=== PATIENT | female | born 1930 | race Caucasian/White ===

== ENCOUNTER → 2016-10-23 | Day surgery (SDC) | payer MEDICARE, OTHER ==
[~2016-10-23] MED LIST: ASPIR 8181 MG PO; ATIVAN1 MG PO; DEPAKOTE500 MG PO; DOCUSATE SODIU250 MG PO; DULCOLAX10 MG RC; ELESTAT5 ML OU; FERROUS GLUCON324 M1 PO; FLEET ENEMA133 ML RC; FLOMAX0.4 MG PO; ISOSORBIDE MONO30 MG PO; LEXAPRO10 MG PO; LIPITOR10 MG PO; NORCO 5-325 TA1 EACH PO; ROBAFEN100 MG/5 M PO; SENNA8.6 MG PO; SEROQUEL25 MG PO; SIMETHICONE80 MG PO; TYLENOL EXTRA500 MG PO; ZANTAC150 MG PO; ZOFRAN4 MG PO; ZYLOPRIM100 MG PO
== END | disposition home or self-care (01) ==
LOC: SDCH 10:18
DX: D12.0 Benign neoplasm of cecum (principal); D12.4 Benign neoplasm of descending colon; K52.9 Noninfective gastroenteritis and colitis, unspecified; K57.30 Diverticulosis of large intestine without perforation or abscess without bleeding; I10 Essential (primary) hypertension; Z86.69 Personal history of other diseases of the nervous system and sense organs; Z91.041 Radiographic dye allergy status; Z95.1 Presence of aortocoronary bypass graft; Z90.49 Acquired absence of other specified parts of digestive tract; Z87.19 Personal history of other diseases of the digestive system; Z90.710 Acquired absence of both cervix and uterus
CPT/HCPCS: J1610; J2704

== ENCOUNTER → 2016-10-30 | Day surgery (SDC) | payer MEDICARE, OTHER | END | disposition home or self-care (01) | LOC: SDC 10:57 → EDSTATUS 12:00 → SDC 13:30 | DX: C18.7 Malignant neoplasm of sigmoid colon (principal); K57.30 Diverticulosis of large intestine without perforation or abscess without bleeding; I10 Essential (primary) hypertension; I25.2 Old myocardial infarction; I25.10 Atherosclerotic heart disease of native coronary artery without angina pectoris; K21.9 Gastro-esophageal reflux disease without esophagitis; G89.29 Other chronic pain; M19.90 Unspecified osteoarthritis, unspecified site; Z86.73 Personal history of transient ischemic attack (TIA), and cerebral infarction without residual deficits; Z87.442 Personal history of urinary calculi; Z88.5 Allergy status to narcotic agent; Z91.041 Radiographic dye allergy status; Z90.49 Acquired absence of other specified parts of digestive tract; Z90.710 Acquired absence of both cervix and uterus; Z95.1 Presence of aortocoronary bypass graft | CPT/HCPCS: J1610; J2704 ==

== ENCOUNTER → 2016-11-07 | Day surgery (SDC) | payer MEDICARE, OTHER | END | disposition home or self-care (01) | LOC: SDCH 08:43 | DX: K29.50 Unspecified chronic gastritis without bleeding (principal); R93.3 Abnormal findings on diagnostic imaging of other parts of digestive tract; K44.9 Diaphragmatic hernia without obstruction or gangrene; I51.9 Heart disease, unspecified; F03.90 Unspecified dementia, unspecified severity, without behavioral disturbance, psychotic disturbance, mood disturbance, and anxiety; G40.909 Epilepsy, unspecified, not intractable, without status epilepticus; Z85.038 Personal history of other malignant neoplasm of large intestine; Z91.041 Radiographic dye allergy status; Z79.899 Other long term (current) drug therapy | CPT/HCPCS: J2704 ==